=== PATIENT | male | born 1965 | race Caucasian/White ===

== ENCOUNTER 2018-10-01 00:24 | Observation (INO) | payer OTHER ==
[2018-10-01] MEDS ORDERED: ACETAMINOPHEN 500 MG TAB PO PRN (00:44)
[2018-10-01] MEDS ORDERED: ALPRAZOLAM 0.25 MG TABLET PO PRN (00:44)
[2018-10-01] MEDS ORDERED: MORPHINE 4 MG/ML SYR IV PRN (00:44)
[2018-10-01] MEDS: ASPIRIN EC 81 MG TAB PO SCH (08:33)
[2018-10-01] MEDS: ENOXAPARIN 40 MG/0.4 ML SQ SCH (08:33)
[2018-10-01] MEDS: METOPROLOL TAR 50 MG TAB PO SCH ×2 (08:34→20:56)
--- NOTE | 2018-10-01 10:01 | P.HP ---
Certification for Inpatient Patient admitted to: Observation With expected LOS: <2 Midnights Patient will require the following post-hospital care: None Practitioner: I am a practitioner with admitting privileges, knowledge of patient current condition, hospital course, and medical plan of care. Services: Services provided to patient in accordance with Admission requirements found in Title 42 Section 412.3 of the Code of Federal Regulations Patient History Date of Service: 10/01/18 Reason for admission: chest pain rule out acute coronary syndrome / chest pain at rest History of Present Illness: Patient is a 52-year-old gentleman who came into the hospital with chest discomfort. Patient went to all to see emergency room. He had pain in the left side of his breasts. He has some diaphoresis as well. No radiation down his left arm and no shortness of breath. Patient denied any nausea or vomiting. He came into the ER and troponins and EKG were negative. He is a patient of Dr. Harrell for his primary care, and Dr. Deleon, for Cardiology. He has had a stress test about 5 years ago. At this time, he will be admitted to the hospital for further evaluation. Allergies olanzapine [From Zyprexa] Allergy (Verified 10/01/18 01:14) Anaphylaxis Penicillins Allergy (Verified 10/01/18 01:14) Anaphylaxis quetiapine [From Seroquel] Allergy (Verified 10/01/18 01:14) Anaphylaxis Home Medications: Amlodipine [Norvasc] 2.5 mg PO DAILY 10/01/18 Atorvastatin Calcium [Lipitor] 20 mg PO DAILY 10/01/18 Divalproex ER [Depakote *ER*] 500 mg PO BREAKFAST 10/01/18 Divalproex ER [Depakote *ER*] 750 mg PO DAILY AT SUPPER 10/01/18 Gemfibrozil 600 mg PO BID 10/01/18 Levothyroxine [Synthroid] 50 mcg PO [id number] 10/01/18 [place] Carbonate [[place] Carbonate ER] 450 mg PO DAILY 10/01/18 [place] Carbonate [Lithotabs 300MG] 600 mg PO DAILY 10/01/18 Zolpidem Tartrate [Ambien] 10 mg PO BEDTIME 10/01/18 clonazePAM [Klonopin] 1 mg PO DAILY PRN 10/01/18 - Past Medical/Surgical History Has patient received pneumonia vaccine in the past: Yes Diabetic: No -: High Cholesterol -: Hypertension -: Hypothyroidism -: Bipolar Past Surgical History: Patient denies surgical history - Family History Mother History Unknown: Yes Medical History: Heart disease - Social History Smoking Status: Never smoker Alcohol use: No CD- Drugs: No Caffeine use: Yes Place of Residence: Home Review of Systems 10-point ROS is otherwise unremarkable Physical Examination - Vital Signs Temperature: 97.8 F Blood Pressure: 123/78 Pulse: 62 Respirations: 16 Pulse Ox (%): 98 - Physical Exam General: Alert, In no apparent distress, Oriented x3 HEENT: Atraumatic, PERRLA, Mucous membr. moist/pink, EOMI, Sclerae nonicteric Neck: Supple, 2+ carotid pulse no bruit, No LAD, Without JVD or thyroid abnormality Respiratory: Clear to auscultation bilaterally, Normal air movement Cardiovascular: Regular rate/rhythm, Normal S1 S2, No murmurs Gastrointestinal: Normal bowel sounds, Hypoactive, Soft and benign, Non- distended, No tenderness Musculoskeletal: No clubbing, No swelling, No tenderness Integumentary: No rashes Neurological: Normal gait, Normal speech, Normal strength at 5/5 x4 extr, Normal tone, Sensation intact, Cranial nerves 3-12 intact, Normal affect Lymphatics: No axilla or inguinal lymphadenopathy - Studies Laboratory Data (last 24 hrs) 10/01/18 05:13: Triglycerides 259 H, Cholesterol 136, HDL Cholesterol 30 L, Cholesterol/HDL Ratio 4.53 10/01/18 05:13: Troponin I < 0.02 Assessment & Plan - Problems (Diagnosis) (1) Chest pain, rule out acute myocardial infarction Current Visit: Yes Status: Acute - Plan 1. Serial troponins and EKG 2. Cardiology consultation 3. Echocardiogram and possibly an outpatient stress nadeen 4. Anti-platelet therapy, anti coagulation, beta-leonel, statin, and O2 as needed 5. IV morphine for pain 6. Nitro p.r.n. Discharge Plan: Home Plan to discharge in: 48 Hours - Advance Directives Does patient have a Living Will: No Does patient have a Durable POA for Healthcare: No - Code Status/Comfort Care Code Status Assessed: Yes Code Status: Full Code Critical Care: No Time Spent Managing PTS Care (In Minutes): 45
[2018-10-01] MEDS ORDERED: clonazePAM 1 MG TAB PO PRN (11:24)
[2018-10-01] MEDS ORDERED: ATORVASTATIN 20 MG TAB PO SCH ×2 (11:24→21:00)
[2018-10-01] MEDS: DIVALPROEX ER 250 MG TAB PO SCH (11:24)
[2018-10-01] MEDS: LITHIUM CARBONATE 300 MG TAB PO SCH (12:00)
[2018-10-01] MEDS: GEMFIBROZIL 600 MG TAB PO SCH ×2 (12:45→21:02)
[2018-10-01] MEDS: LEVOTHYROXINE SOD 0.05 MG TABLET PO SCH (12:46)
--- NOTE | 2018-10-01 15:35 | RAD REPORT ---
EXAM DESCRIPTION: CT - Head Brain Wo Cont - 10/01/2018 3:27 pm CLINICAL HISTORY: Numbness COMPARISON: None. TECHNIQUE: Computed axial tomography of the head was obtained. IV contrast was not requested. All CT scans are performed using dose optimization technique as appropriate and may include automated exposure control or mA/KV adjustment according to patient size. FINDINGS: An intracranial bleed is not seen . The ventricles are normal in caliber. No extra-axial fluid collection is noted. The right frontal sinus is opacified. Mucous retention cyst right and left maxillary sinus. Left mastoid is opacified IMPRESSION: No acute intracranial abnormality is seen. If patient's symptoms persist MRI of the bra in would be recommended. Sinusitis Opacification left mastoid may indicate mastoiditis
--- NOTE | 2018-10-01 16:34 | CON ---
Primary Care Physician: Dr. Harrell. Chief Complaint: Chest pain. History Of Present Illness: Mr. Bhatia got a knot in his chest, tingling in the left arm, and feet all of that resolved. He was sweating profusely, came to the ER. Since being here, cardiac enzymes and EKGs are normal. He has had a noninvasive workup in the past. It has been normal. He has unde rlying hypertension and dyslipidemia and has fairly good control of his lipids, although his triglyce rides are still elevated. Medications: Outpatient medications have been zolpidem, levothyroxine, atorvastatin, amlodipine, lit hium carbonate, gemfibrozil, Depakote, and clonazepam. Social History: He uses no tobacco. Physical Examination: General: He is alert, oriented, pleasant, 6 feet 1, 230 pounds, not in distress. Lungs: Clear. Cardiac: Normal. Abdomen: Soft. Extremities: Normal. EKG, not available. Impression: Mr. Bhatia probably does not have coronary artery disease. We will do a nuclear stres s and echo tomorrow. VIKA/ARABELLA Voice ID: [id number] Report ID: [id number]
[2018-10-01] MEDS ORDERED: DIVALPROEX ER 250 MG TAB PO SCH ×2 (17:00→21:00)
--- NOTE | 2018-10-01 17:25 | PN ---
Date of Progress Note: 10/01/2018 Subjective: The patient is seen and examined. Chart reviewed and case discussed with RN and Dr. Tyler almanza. The patient still having some twinges of pain, however, overall improved from yesterday. Also complains of numbness and tingling in his left lower extremity. Medications: List reviewed. Physical Examination: Vital Signs: Temperature 97.8, heart rate 52, blood pressure 118/66, respirations 16, O2 98% on room air. General: Awake, alert, and oriented x3, not in any acute distress. Obese male. BMI 30. CV: S1, S2. Regular rate and rhythm. Peripheral pulses present. Respiratory: Moving air well bilaterally. No wheezing. Gastrointestinal: Abdomen is soft, nontender, nondistended. Positive bowel sounds. Extremities: No clubbing, cyanosis, or edema. Neuro: Cranial nerves 2 through 12 intact grossly. No focal neurological deficit. Speech is normal . The patient has decreased sensation to left lower extremity compared to right lower extremity to l ight touch. Skin: No rashes. Normal skin turgor. Laboratory Data: Troponin less than 0.02. Triglycerides 259, cholesterol 136, LDL 54, HDL 30. Lith ium level is pending. Assessment And Plan: A 52-year-old male with: 1.Chest pain, rule out acute coronary syndrome. Cardiac enzymes so far been negative. Appreciate C ardiology input. Dr. Deleon recommends cardiac stress test. EKG reviewed from [place] [facility]. We will co ntinue with chest pain guidelines. 2.Left lower extremity paresthesia. We will obtain head CT scan to rule out acute cerebrovascular a ccident. The patient denies any chronic back pain or spondylosis. Differential diagnosis includes l umbar radiculopathy. 3.Obesity, BMI 30.4. 4.Essential hypertension, stable. We will resume home medications. 5.Bipolar 1 disorder. Continue lithium and Klonopin as needed. We will check lithium level. Jannette nue Depakote. 6.Mixed hyperlipidemia. Triglyceride levels are elevated. Continue statin. 7.Hypothyroidism. Continue levothyroxine. 8.Disposition: Pending further cardiac workup. SA/MODL Voice ID: [id number] Report ID: [id number]
[2018-10-01] MEDS: AMLODIPINE 2.5 MG TAB PO SCH (17:58)
[2018-10-01] MEDS ORDERED: ZOLPIDEM TARTRATE 10 MG TABLET PO SCH (21:00)
[2018-10-02] MEDS: LEVOTHYROXINE SOD 0.05 MG TABLET PO SCH (05:07)
--- NOTE | 2018-10-02 10:23 | RAD REPORT ---
EXAM DESCRIPTION: NM - Rest Stress Cardiac Imaging - 10/02/2018 10:15 am CLINICAL HISTORY: CP Chest pain. COMPARISON: No comparisons TECHNIQUE: The patient was administered approximately 10mCi of Tc 99m Sestamibi prior to resting SPE CT imaging of the heart. The patient was then administered approximately 30 mCi of Tc 99m Sestamibi f ollowing exercise or pharmacologic stress. Multiplanar SPECT images were reviewed. FINDINGS: No stress induced ischemic defect is seen to suggest stress induced ischemia. No fixed def ect is seen to suggest hibernating myocardium or scarred myocardium. The end diastolic volume is 84 ml, the end systolic volume is 34 ml, and the ejection fraction is 60 %. IMPRESSION: No stress induced ischemia.
[2018-10-02 10:36] LABS: Urine Appearance CLEAR; Urine Bilirubin NEGATIVE (NEG); Urine Blood NEGATIVE (NEG); Urine Color YELLOW; Urine Glucose NEGATIVE (NEG); Urine Protein NEGATIVE (NEG); Urine Specific Gravity <=1.005 (1.005-1.030); Urine Urobilinogen 0.2 mg/dL (0.2-1.0)
[2018-10-02 10:37] LABS: Urine Microscopic Reflex ORDER UMIC
[2018-10-02] MEDS: METOPROLOL TAR 50 MG TAB PO SCH (10:55)
[2018-10-02] MEDS: ENOXAPARIN 40 MG/0.4 ML SQ SCH (10:56)
[2018-10-02] MEDS: AMLODIPINE 2.5 MG TAB PO SCH (10:56)
[2018-10-02] MEDS: DIVALPROEX ER 250 MG TAB PO SCH (10:56)
[2018-10-02] MEDS: ASPIRIN EC 81 MG TAB PO SCH (10:57)
[2018-10-02] MEDS: GEMFIBROZIL 600 MG TAB PO SCH (10:57)
[2018-10-02 11:24] LABS: Urine Bacteria <20 /HPF (NONE SEEN); Urine Culture Reflex Order NOT NEEDED; Urine RBC <5 /HPF (NONE SEEN)
[2018-10-02] MEDS: LITHIUM CARBONATE 300 MG TAB PO SCH (12:11)
--- NOTE | 2018-10-02 12:36 | ECHO ---
HEIGHT: 6 ft 1 in WEIGHT: 230 lb 1.6 oz DATE OF STUDY: 10/02/[address]: Amara Bella MD 2-DIMENSIONAL: YES M.MODE: YES DOPPLER: YES COLOR FLOW: YES TDS: NO PORTABLE: NO DEFINITY: NO BUBBLE STUDY: NO DIAGNOSIS: CHEST PAIN, RULE OUT ACS CARDIAC HISTORY: CATHERIZATION: NO SURGERY: NO PROSTHETIC VALVE: NO PACEMAKER: NO MEASUREMENTS (cm) DIASTOLIC (NORMALS) SYSTOLIC (NORMALS) IVSd 1.1 (0.6-1.2) LA Diam 2.6 (1.9-4.0) LVEF 58% LVIDd 4.8 (3.5-5.7) LVIDs 3.3 (2.0-3.5) %FS 31% LVPWd 1.2 (0.6-1.2) Ao Diam 3.1 (2.0-3.7) 2 DIMENSIONAL ASSESSMENT: RIGHT ATRIUM: NORMAL LEFT ATRIUM: NORMAL RIGHT VENTRICLE: NORMAL LEFT VENTRICLE: NORMAL TRICUSPID VALVE: NORMAL MITRAL VALVE: NORMAL PULMONIC VALVE: NORMAL AORTIC VALVE: NORMAL PERICARDIAL EFFUSION: NONE AORTIC ROOT: NORMAL LEFT VENTRICULAR WALL MOTION: NORMAL DOPPLER/COLOR FLOW: NORMAL COMMENTS: NORMAL 2D ECHOCARDIOGRAM WITH DOPPLER. TECHNOLOGIST: Arnold SCHULTZ
--- NOTE | 2018-10-02 12:39 | TREADMILL ---
70% H.R.: 118 85% H.R.: 143 90% H.R.: 151 100% H.R.: 168 DX: CHEST PAIN Date of Study: 10/02/2018 Ht: 6 1 Wt: 230 lb 1.6 oz Consulting Physician: SETH MEDICATIONS: NORCO, ASPIRIN, LIPITOR, LOVENOX, NEURONTIN, XANAX, NORVASC HISTORY: 52 YEAR OLD MALE HERE FOR CHEST PAIN. HISTORY OF HYPERTENSION AND HYPERLIPIDEMIA. PHYSICIAL EXAMINATION: RESTING B.P.: 132/94 RESTING H.R.: 69 RESTING EKG: RIGHT BUNDLE BRANCH BLOCK, OTHERWISE NORMAL PROTOCOL: DARRYN CARDIOLITE EXERCISE TIME: 12:00 MAXIMUM HEART RATE: 137 80 % OF PREDICTED B.P. AT PEAK STRESS: 159/94 H.R. AT 1 MINUTE POST EXERCISE: 126 IMPRESSION: CARDIOLITE DARRYN STRESS TEST PERFORMED. CARDIOLITE INJECTED PER PROTOCOL. TEST STOPPED FOR TARGET HEART RATE AND FATIGUE. NO ARRHYTHMIAS NOTED. SEE NUCLEAR MEDICINE REPORT. NO ST DEPRESSION WITH STRESS.
--- NOTE | 2018-10-02 16:53 | PN ---
Mr. Bhatia's stress test and echocardiogram, both look fine. I believe he could be discharged. I think probably what happened was some kind of blood sugar issue, but it does not seem to be an acute coronary syndrome or pulmonary embolus, and he could be discharged whenever his primary care physicia n feels he is ready, otherwise. VIKA/ARABELLA Voice ID: [id number] Report ID: [id number]
--- NOTE | 2018-10-03 06:15 | DS ---
Date of Discharge: 10/02/2018 Consultants: Dr. Deleon with Cardiology. Procedure: On 10/02/2018, cardiac stress test, which showed no stress-induced ischemia. Discharge Diagnoses: 1.Chest pain, acute coronary syndrome ruled out. 2.Obesity, body mass index of 30.4. 3.Mixed hyperlipidemia. 4.Essential hypertension, stable. 5.Hypothyroidism, stable. 6.Bipolar 1 disorder. 7.Elevated lithium level. Hospital Course: The patient is a 52-year-old male with past medical history of hypertension, hyperl ipidemia, obesity, as well as bipolar 1 disorder comes in from [place] due to chest pain. Patient's in itial cardiac workup was negative including troponin and D-dimer. His EKG did not show any ST-elevat ion RI. Patient was scheduled for a cardiac stress test by Dr. Deleon. He was evaluated by Cardiolo gy. His lipid panel showed elevated triglyceride levels and low HDL. His cardiac enzymes remained n egative. Cardiac stress test was negative for any stress-induced ischemia. Echocardiogram showed an EF of 58%. The patient's lithium level was elevated at 1.4. His lithium was held for 24 hours. Repeat level wa s within normal limits. Patient did report some paresthesias of his left lower extremity. Head CT w as done to rule out hemorrhagic CVA or any mass effect, which was negative. Patient denied any histo ry of chronic back pain or radiculopathy. Patient's numbness and tingling of the left lower extremit y resolved. Patient's chest pain also resolved. He did report gastroesophageal reflux type symptoms at home. He was counseled regarding possibility of acid reflux, TIPS to prevent GERD. He was recom mended to start on [id number] PPI and to follow up with a GI doctor for possible scope to rule out ulcers or other disease processes. Patient was then cleared for discharge from Cardiology standp oint. Medications: As per medication reconciliation list. Followup: Follow up with primary care physician in 2 to 3 days. Follow up with analysis director, Dr. Trenton peng, in 2 weeks. Establish care with GI doctor. Return to ER for worsening condition. Diet: Heart healthy. Activity: As tolerated. Physical Examination: General: Awake, alert, oriented x3. Obese male. CV: S1, S2. Respiratory: Moving air well bilaterally. Abdomen: Soft, nontender, nondistended. Positive bowel sounds. Extremities: No clubbing, cyanosis, or edema. Neurologic: Nonfocal. SA/MODL Voice ID: [id number] Report ID: [id number]
== END 2018-10-02 14:19 | disposition home or self-care (01) ==
LOC: 4TH 00:41
PROVIDERS: ADMIT Hospitalist; ATTEND Family Medicine
DX: R07.9 Chest pain, unspecified (principal); E78.2 Mixed hyperlipidemia; I10 Essential (primary) hypertension; E03.9 Hypothyroidism, unspecified; F31.9 Bipolar disorder, unspecified; R78.89 Finding of other specified substances, not normally found in blood; R20.2 Paresthesia of skin; I45.10 Unspecified right bundle-branch block; J32.9 Chronic sinusitis, unspecified; E66.9 Obesity, unspecified; Z68.30 Body mass index [BMI] 30.0-30.9, adult; Z79.899 Other long term (current) drug therapy
CPT/HCPCS: 36415; 70450; 78452; 80061; 80178; 81003; 81015; 84484; 93017; 93306; A9500; G0378; J1650

== ENCOUNTER 2022-03-31 09:20 | Emergency (ER) | payer OTHER ==
--- OUTSIDE RECORDS SUMMARY | 2022-03-31 09:23 | XMS REPORT | Continuity of Care Document ---
:1965 Author Organization [facility] t Address [address] [place] [address] Care Team Providers Name Role Phone Julio Cesar CHRISTIANSON, Ricky Calabrese Primary Care Physician Mane Ruiz MD Attending Clinician Mainor CHRISTIANSON, Janeth Black Attending Clinician [phone] MANE RUIZ Admitting Clinician Unavailable Payers Payer Name Policy Type Policy Number Effective Date Expiration Date S ource Problems Condition Condition Condition Status Onset Resolution Last Treating Co mments Source Name Details Category Date Date Treatment Clinician Date Adhesive Adhesive Disease Active 2021-03 Metho di left left 04-10 middle ear middle ear 00:00: Ho spita disease disease 00 l Eustachian Eustachian Disease Active 2021-03 M ethodi tube tube 04-10 disorder, disorder, 00:00: [facility] left left 00 l Allergies, Adverse Reactions, Alerts Allergy Allergy Status Severity Reaction(s) Onset Inactive Treating Comm ents Source Name Type Date Date Clinician Hydrocod Propensi Active GI 2021-03 Method i one ty to Intolerance 04-10 adverse 00:00: Hospita reaction 00 l s to drug Penicill Propensi Active Other (See 2021-03 Was told Methodi ins ty to Comments) 04-[address] adverse 00:00: child Hospita reaction 00 l s to drug Quetiapi Propensi Active Anaphylaxis 2021-03 M ethodi ne ty to 04-07 st adverse 00:00: Hospita reaction 00 l s to drug Olanzapi Propensi Active Other (See 2021-03 'made me Methodi ne ty to Comments) 04-[address] adverse 00:00: Hospita reaction 00 l s to drug Social History Social Habit Start Date Stop Date Quantity Comments Source Alcohol intake 2022-02-10 2022-02-10 Lifetime [facility] 00:00:00 00:00:00 non-drinker Hospital (finding) Tobacco use and 2022-02-05 2022-02-05 Smokeless tobacco [facility] exposure 00:00:00 00:00:00 [facility]-user Hospital Sex Ass[birth year] At [birth year] [facility] 00:00:00 00:00:00 Hospital Smoking Status Start Date Stop Date Source Never smoked tobacco [facility] Medications Ordered Filled Start Stop Current Ordering Indication Dosage Frequency Signature Comments Components Source Medication Medication Date Date Medication? Clinician (SIG) Name Name gemfibroziL 2021-03 600mg Q.5D Take 1 Me thodi (LOPID) 600 04-[address] MG tablet 16:17: 00:00 (600 mg [facility] 28 :00 total) by l mouth 2 (two) times a day before meals. lisinopriL 2021-03 No 2.5mg QD Take 1 Met hodi (PRINIVIL) 04-[address] 2.5 mg 16:17: 00:00 (2.5 mg Hospita tablet 28 :00 total) by l mouth nightly. carvediloL 2021-03 Yes 6.25mg Q.5D Take 1 Met hodi (COREG) 04-[address] 6.25 MG 16:17: (6.25 mg Hospit a tablet 24 total) by l mouth 2 (two) times a day with meals. clonAZEPAM 2021-03 Yes 1mg Take 1 Metho di (KlonoPIN) -21 tablet (1 st 1 MG tablet 16:17: mg total) H ospita 24 by mouth l as needed for anxiety. divalproex 2021-03 Yes 250mg Take 1 Meth daniel (DEPAKOTE) [address] 250 MG EC 16:17: (250 mg Hospi ta tablet 24 total) by l mouth See Admin Instructio ns. 2 tabs in AM; 3 tabs in PM levothyroxi 2021-03 Yes 50ug QD Take 1 Meth daniel ne 1-21 tablet (50 st (SYNTHROID) 16:17: mcg total) Hospita 50 mcg 24 by mouth l tablet every morning. lithium 2021-03 Yes 450mg QD Take 1 Methodi (ESKALITH) 1-[address] 450 MG CR 16:17: (450 mg Hospi ta tablet 24 total) by l mouth nightly. lithium 600 2021-03 Yes 600mg QD Take 1 Met hodi MG capsule -[address] 16:17: (600 mg Hospita 24 total) by l mouth every morning. rosuvastati 2021-03 Yes 40mg QD Take 1 Meth daniel n (CRESTOR) -21 tablet (40 st 40 MG 16:17: mg total) Hospita tablet 24 by mouth l nightly. zolpidem 2021-03 Yes 10mg QD Take 1 Methodi (AMBIEN) 10 -21 tablet (10 st mg tablet 16:17: mg total) Hos stephen 24 by mouth l nightly as needed for sleep. Immunizations Ordered Immunization Filled Immunization Date Status Commen ts Source Name Name [facility] COVID19 [facility] 2020-12-20 Completed Meth odist VACCINATION 00:00:00 [facility] PFIZER COVID-19 [facility] 2020-05-09 Completed Meth odist VACCINATION 00:00:00 [facility] COVID19 [facility] 2020-04-20 Completed Meth odist VACCINATION 00:00:00 Hospital Vital Signs Vital Name Observation Time Observation Value Comments Source Systolic blood 2022-02-08 21:58:00 130 mm[Hg] Method ist [facility] pressure Diastolic blood 2022-02-08 21:58:00 75 [facility]Hg[facility] pressure Heart rate 2022-02-08 21:58:00 63 /min [facility] Body temperature 2022-02-08 21:58:00 36.22 Cris [facility] Respiratory rate 2022-02-08 21:58:00 18 /min [facility] Oxygen saturation in 2022-02-08 21:58:00 100 /min [facility] Arterial blood by Pulse oximetry Body height 2022-02-08 16:06:00 182.9 cm [facility] Body weight 2022-02-08 16:06:00 95.4 kg [facility] BMI 2022-02-08 16:06:00 28.52 kg/m2 [facility] Procedures Procedure Date / Time Performing Clinician Source Performed VT AN ELECTIVE 2022-02-08 19:41:00 [facility] ENDOTRACHEAL AIRWAY TYMPANOTOMY WITH 2022-02-08 19:29:00 Mane Ruiz [facility] INTUBATION COVID-19 QUALITATIVE 2022-02-05 20[facility]34[facility]POST OP 2022-02-05 20:26:54 [facility] COMPREHENSIVE METABOLIC 2022-02-05 20:25:00 [facility] PANEL CBC WITH PLATELET AND 2022-02-05 20:25:00 [facility] DIFFERENTIAL HEMOGLOBIN A1C 2022-02-05 20:25:00 [facility] ESTIMATED GFR 2022-02-05 20:25:00 [facility] CT TEMPORAL BONE WO 2022-02-03 15:13:17 [facility] CONTRAST Plan of Care Planned Activity Planned Date Details Comments Source Future Scheduled 2022-03-04 Hepatitis C screening [facility] Test 11:56:18 (procedure) [code = 373892915] Future Scheduled 2022-03-04 COLONOSCOPY SCREENING [facility] Test 11:56:18 [code = COLONOSCOPY SCREENING] Future Scheduled 2022-03-04 SHINGLES VACCINES (1 [facility] Test 11:56:18 of 2) [code = SHINGLES VACCINES (1 of 2)] Future Scheduled 2022-03-04 COVID-19 VACCINE (4 - [facility] Test 11:56:18 Booster for Pfizer series) [code = COVID-19 VACCINE (4 - Booster for Pfizer series)] Encounters Start End Encounter Admission Attending Care Care Encounter Source Date/Time Date/Time Type Type Clinicians Facility Department ID 2022-02-05 2022-02-11 Pre-Admiss Anju Ruiz.2.840.1 [id number] Michaela 14:00:00 00:05:36 ion Mane Garvey 58651.1.[address] Testing 3.430.2.7 Hospit a .3.715036 l .8 2022-02-08 2022-02-08 Hospital Ruiz, 1.2.840.1 [id number] Methodi 09:28:00 16:15:00 Encounter [place]ane [place]. [address]177.1.[address] 3.430.2.7 Hospit a .3.773164 l .8 2022-02-08 2022-02-08 Surgery Ruiz, 1.2.840.1 [id number] Methodi 13:15:00 15:45:[address] 3.430.2.7 Hospit a .3.925884 l .8 2022-02-08 2022-02-08 Anesthesia Mainor, 1.2.840.1 [id number] Methodi 13:30:00 15:15:00 Event Janeth 33416.1.[address] Steff 3.430.2.7 Hospit a Paulose .3.584671 l .8 2022-02-08 2022-02-08 Outpatient [facility] [id number] [place] 00:00:00 00:00:[address] 2022-02-08 2022-02-08 Travel 1.2.840.1 1.2.577.429 [id number] Methodi 00:00:00 00:00:[address] 3.430.2.7 0.2.7.3.698 Ho spita .3.854291 084.8 l .8 2022-02-05 2022-02-05 Outpatient [facility] [id number] [place] 00:00:00 00:00:[address] MAN[address] 2022-02-04 2022-02-04 Travel 1.2.840.1 1.2.682.005 [id number] Methodi 00:00:00 00:00:[address] 3.430.2.7 0.2.7.3.698 Ho spita .3.249514 084.8 l .8 2022-02-03 2022-02-03 Outpatient JOSEPH, [facility] [id number] [place] 00:00:00 00:00:[address] 2022-01-20 2022-01-20 Travel 1.2.840.1 1.2.814.409 [id number] Methodi 00:00:00 00:00:[address] 3.430.2.7 0.2.7.3.698 Ho spita .3.786743 084.8 l .8 2022-01-18 2022-01-18 Travel 1.2.840.1 1.2.546.652 [id number] Methodi 00:00:00 00:00:[address] 3.430.2.7 0.2.7.3.698 Ho spita .3.056540 084.8 l .8 2022-01-13 2022-01-13 Travel 1.2.840.1 1.2.721.904 [id number] Methodi 00:00:00 00:00:[address] 3.430.2.7 0.2.7.3.698 Ho spita .3.099939 084.8 l .8 Results Test Description Test Time Test Comments Results Result Comments Source ECG Pre/Post Op 2022-02-06 02:33:21 Test Item Value Reference Range Interpretation Comme nts Ventricular rate (test code = 253) Atrial rate (test code = 255) VT interval (test code = 266) QRSD interval (test code = 260) QT interval (test code = 264) QTC interval (test code = 265) P axis 1 (test code = 267) QRS axis 1 (test code = 268) T wave axis (test code = 270) EKG impression (test code = 273) Sinus bradycardia with sinus arrhythmia-Nonspecific T wave abnormality-Abnormal ECG-No previous ECGs available- Nicholas BruceARS-CoV-2 (COVID-19) RNA [Presence] in Respiratory specimen by ANGEL with probe [id number] 18:41:13 Test Item Value Reference Range Interpretation Comments SARS-CoV-2 (COVID-19) RNA Not detected [Presence] in Respiratory specimen by ANGEL with probe detection (test code = 04298-1) Whether patient is employed in a Unknown healthcare setting (test code = 57982-9) Whether the patient has symptoms Unknown related to condition of interest (test code = 39436-6) Whether the patient was Unknown hospitalized for condition of interest (test code = 32404-6) Whether the patient was admitted Unknown to intensive care unit (ICU) for condition of interest (test code = 96707-2) Whether patient resides in a Unknown congregate care setting (test code = 59270-8) status (test code = Unknown 08665-8) Date and time of symptom onset Unknown (test code = 60179-6) CHANI GREY
[2022-03-31 09:58] LABS: Hematocrit 35.4 % (39.6-49.0); MCV 85.1 fL (80-100); MPV 8.1 fL (7.6-11.3); RBC Red Blood Cell Count 4.16 M/uL (4.33-5.43)
[2022-03-31 10:12] LABS: Potassium 4.3 mmol/L (3.5-5.1)
--- NOTE | 2022-03-31 11:06 | ER ---
Nurse's Notes [facility] Name: Will Bhatia Age: 56 yrs Sex: Male : 1965 Arrival Date: 03/31/2022 Time: 09:24 Bed 18 Private MD: Jocelyn Harrell C Diagnosis: Bipolar disease, emotional lability, elevated lithium level Presentation: 03/31 09:27 Chief complaint: Pt's states "he is bipolar and last week he had COVID and got the aa5 antiviral and we went to his psychiatrist because he's been feeling depressed, he is having some confusion, and he is having diarrhea and the psychiatrist said to bring him to the ER to get his lithium level checked". Coronavirus screen: Client reports previous positive COVID test result. Ebola Screen: Patient denies travel to an Ebola-affected area in the 21 days before illness onset. Initial Sepsis Screen: Does the patient meet any 2 criteria? No. Patient's initial sepsis screen is negative. Does the patient have a suspected source of infection? Yes:. Risk Assessment: Do you want to hurt yourself or someone else? Patient reports no desire to harm self or others. Onset of symptoms was March 2022. 09:27 Method Of Arrival: Ambulatory aa5 09:27 Acuity: [place] 3 aa5 Historical: - Allergies: 09:29 PENICILLINS; aa5 09:29 hydrocodone; aa5 09:29 Seroquel; aa5 09:29 Zyprexa; aa5 - PMHx: 09:30 Hypertensive disorder; Bipolar disorder; thyroid problem; Hypercholesterolemia; kidney aa5 cyst; - PSHx: 09:30 left ear; aa5 - Immunization history:: Adult Immunizations unknown. - Social history:: Smoking status: Patient denies any tobacco usage or history of. Vital Signs: : BP 132 / 88; Pulse 68; Resp 18 S; Temp 98.6(TE); Pulse Ox 100% on R/A; Weight 97.52 kg aa5 (R); Height 6 ft. 0 in. (182.88 cm) (R); Pain 0/10; 09:27 Body Mass Index 29.16 (97.52 kg, 182.88 cm) aa5 ED Course: Patient arrived in ED. as :24 Jocelyn Harrell MD is Private Physician. as 09:26 Arm band placed on. aa5 09:29 Triage completed. aa5 09:31 Alyce Delong MD is Attending Physician. sp3 09:51 Antoinette Lombardi, RN is Primary Nurse. kr3 09:53 [place] [facility] Sent. bc6 09:53 BMP Sent. bc6 09:53 CBC w/o diff Sent. bc6 09:53 Initial lab(s) drawn, by id, sent to lab. Inserted saline lock: 20 gauge in right bc6 antecubital area, using aseptic technique. 11:05 Jocelyn Harrell MD is Referral Physician. sp3 Administered Medications: No medications were administered Outcome: 11:05 Discharge ordered by MD. sp3 11:42 Patient left the ED. kr3 Signatures: Yazmin Warren Audri, RN RN aa5 Alyce Delong MD MD sp3 Antoinette Lombardi, RN RN 3 [facility]
--- NOTE | 2022-03-31 11:06 | EDPHYS ---
Physician Documentation [facility] Name: Will Bhatia Age: 56 yrs Sex: Male : 1965 Arrival Date: 03/31/2022 Time: 09:24 Bed 18 Private MD: Jocelyn Harrell C ED Physician Alyce Delong HPI: 03/31 09:42 This 56 yrs old Male presents to ER via Ambulatory with complaints of Diarrhea, sent sp3 for lithium level. 09:42 56-year-old male with history of hypertension, bipolar disease who had recent COVID-19 sp3 infection is now being sent in by PCP Dr. Harrell for lithium level check secondary to emotional lability and crying episodes patient takes 600 mg of lithium in the morning and 900 mg in the evening and there has been no recent changes in the dosing. No other axis disorders or symptoms at this time. She denies headache, URI symptoms, chest pain, shortness of breath, back pain, abdominal pain, nausea, vomiting, diarrhea, syncope, near syncope, neurological deficit, travel history, known sick contacts, or any other ROS at this time.. Historical: - Allergies: 09:29 PENICILLINS; aa5 09:29 hydrocodone; aa5 09:29 Seroquel; aa5 09:29 Zyprexa; aa5 - PMHx: 09:30 Hypertensive disorder; Bipolar disorder; thyroid problem; Hypercholesterolemia; kidney aa5 cyst; - PSHx: 09:30 left ear; aa5 - Immunization history:: Adult Immunizations unknown. - Social history:: Smoking status: Patient denies any tobacco usage or history of. ROS: 09:43 Constitutional: Negative for fever, chills, and weight loss, Eyes: Negative for injury, sp3 pain, redness, and discharge, ENT: Negative for injury, pain, and discharge, Neck: Negative for injury, pain, and swelling, Cardiovascular: Negative for chest pain, palpitations, and edema, Respiratory: Negative for shortness of breath, cough, wheezing, and pleuritic chest pain, Abdomen/GI: Negative for abdominal pain, nausea, vomiting, diarrhea, and constipation, Back: Negative for injury and pain, Skin: Negative for injury, rash, and discoloration, Neuro: Negative for headache, weakness, numbness, tingling, and seizure, Allergy/Immunology: Negative for hives, rash, and allergies, Endocrine: Negative for neck swelling, polydipsia, polyuria, polyphagia, and marked weight changes, Hematologic/Lymphatic: Negative for swollen nodes, abnormal bleeding, and unusual bruising. 09:43 All other systems are negative. Exam: :43 Constitutional: This is a well developed, well nourished patient who is awake, alert, sp3 and in no acute distress. Head/Face: Normocephalic, atraumatic. Eyes: Pupils equal round and reactive to light, extra-ocular motions intact. Lids and lashes normal. Conjunctiva and sclera are non-icteric and not injected. Cornea within normal limits. Periorbital areas with no swelling, redness, or edema. Neck: Trachea midline, no thyromegaly or masses palpated, and no cervical lymphadenopathy. Supple, full range of motion without nuchal rigidity, or vertebral point tenderness. No Meningismus. Chest/axilla: Normal chest wall appearance and motion. Nontender with no deformity. No lesions are appreciated. Cardiovascular: Regular rate and rhythm with a normal S1 and S2. No gallops, murmurs, or rubs. Normal PMI, no JVD. No pulse deficits. Respiratory: Lungs have equal breath sounds bilaterally, clear to auscultation and percussion. No rales, rhonchi or wheezes noted. No increased work of breathing, no retractions or nasal flaring. Abdomen/GI: Soft, non-tender, with normal bowel sounds. No distension or tympany. No guarding or rebound. No evidence of tenderness throughout. Skin: Warm, dry with normal turgor. Normal color with no rashes, no lesions, and no evidence of cellulitis. MS/ Extremity: Pulses equal, no cyanosis. Neurovascular intact. Full, normal range of motion. Neuro: Awake and alert, GCS 15, oriented to person, place, time, and situation. Cranial nerves II-XII grossly intact. Motor strength 5/5 in all extremities. Sensory grossly intact. Cerebellar exam normal. Normal gait. :43 Psych: She has no suicidal ideation, homicidal ideation, psychosis and does not appear to be responding to internal stimuli. His conversation affect is not flat and speaking normally at this time.. Vital Signs: 09:27 BP 132 / 88; Pulse 68; Resp 18 S; Temp 98.6(TE); Pulse Ox 100% on R/A; Weight 97.52 kg aa5 (R); Height 6 ft. 0 in. (182.88 cm) (R); Pain 0/10; 09:27 Body Mass Index 29.16 (97.52 kg, 182.88 cm) aa5 MDM: 09:44 Data reviewed: vital signs, nurses notes. ED course: Patient's blood work sent for sp3 lithium level as well as routine labs. If work-up is negative and lithium level is therapeutic or low, we will discharge patient home to PCP follow-up. I am not suspicious for any other metabolic syndrome, sepsis, shock, any other somatic etiology for patient's symptoms.. 11:03 ED course: [place] level is at 1.4 which is mildly above therapeutic. Will defer sp3 further management to primary care physician and I do not believe patient needs a dosing change currently.. 11:05 Patient medically screened. sp3 03/31 09:40 Order name: CBC w/o diff; Complete Time: 10:32 sp3 03/31 09:40 Order name: BMP; Complete Time: 10:32 sp3 03/31 09:40 Order name: [place]; Complete Time: 11:03 sp3 Administered Medications: No medications were administered Disposition Summary: 03/31/22 11:05 Discharge Ordered Location: Home sp3 Condition: Stable sp3 Diagnosis - Bipolar disease, emotional lability, elevated lithium level sp3 Followup: sp3 - With: Jocelyn Harrell MD - When: Upon discharge from the Emergency Department - Reason: Continuance of care Discharge Instructions: - Discharge Summary Sheet sp3 - Managing Bipolar Disorder sp3 Forms: - Medication Reconciliation Form sp3 - Thank You Letter sp3 - Antibiotic Education sp3 - Prescription Opioid Use sp3 - Family Work Release kr3 Signatures: Dispatcher [employer] EDErna Ferrer RN RN aa5 Alyce Delong MD MD sp3
[2022-03-31 11:47] VITALS: BP 132/88; TEMP 98.6; O2SAT 100
== END 2022-03-31 11:42 | disposition home or self-care (01) ==
LOC: ER 09:20
DX: R45.86 Emotional lability (principal); R79.89 Other specified abnormal findings of blood chemistry; F31.9 Bipolar disorder, unspecified; I10 Essential (primary) hypertension; Z88.0 Allergy status to penicillin; Z88.5 Allergy status to narcotic agent; Z88.8 Allergy status to other drugs, medicaments and biological substances
CPT/HCPCS: 36415; 80048; 80178; 85027